=== PATIENT | male | born 1965 | race Caucasian/White ===

== ENCOUNTER 2020-09-04 16:05 | Emergency (ER) | payer OTHER ==
[2020-09-04] MEDS ORDERED: PREDNISONE 20 M20 MG PO (19:54)
[2020-09-04] MEDS ORDERED: HYDROCODON-ACE1 EAC4 PO (19:58)
== END 2020-09-04 20:03 | disposition home or self-care (01) ==
LOC: ER1 16:05
DX: T63.441A Toxic effect of venom of bees, accidental (unintentional), initial encounter (principal); F17.200 Nicotine dependence, unspecified, uncomplicated
CPT/HCPCS: 96374; 96375; 99282; J1200; J2930

== ENCOUNTER → 2021-06-02 | Outpatient (CLI) | payer OTHER ==
[~2021-06-02] MED LIST: HYDROCODON-ACE1 EAC4 PO; PREDNISONE 20 M20 MG PO
== END ==
LOC: EMI 09:11
DX: M54.42 Lumbago with sciatica, left side (principal); M47.816 Spondylosis without myelopathy or radiculopathy, lumbar region; M48.061 Spinal stenosis, lumbar region without neurogenic claudication; M48.07 Spinal stenosis, lumbosacral region
CPT/HCPCS: 72148